=== PATIENT | female | born 1990 | race Hispanic/Latino ===

== ENCOUNTER 2018-09-26 21:55 | Emergency (ER) | payer OTHER ==
[~2018-09-26] VITALS: Ht 160 cm; Wt 61.2 kg
[2018-09-26] MEDS ORDERED: TETRACAINE HCL 0.5% OPTH SOLN 4 ML BTL OP ONE (22:30)
[2018-09-26] MEDS ORDERED: EYE IRRIGATION (OPTH) 120 ML BTL OP ONE (22:30)
[2018-09-26] MEDS ORDERED: TOBRAMYCIN 0.3% OPTH OINT 3.5 GM TUBE ONE (22:42)
[2018-09-26] MEDS ORDERED: TOBRAMYCIN 0.3% OPTH OINT 3.5 GM TUBE OP ONE (22:45)
[2018-09-26 23:27] VITALS: BP 116/84
== END 2018-09-26 23:29 | disposition home or self-care (01) ==
LOC: ER 21:55
DX: S05.02XA Injury of conjunctiva and corneal abrasion without foreign body, left eye, initial encounter (principal); W22.8XXA Striking against or struck by other objects, initial encounter
CPT/HCPCS: 99283

== ENCOUNTER 2018-10-14 15:11 | Emergency (ER) | payer SELFPAY ==
[~2018-10-14] VITALS: Ht 160 cm; Wt 61.2 kg
[2018-10-14] MEDS ORDERED: PENICILLIN G BENZATHINE LA 1.2 MU TBX IM ONE (16:25)
== END 2018-10-14 17:20 | disposition home or self-care (01) ==
LOC: ER 15:11
DX: R50.9 Fever, unspecified (principal); J02.0 Streptococcal pharyngitis; H92.03 Otalgia, bilateral; D64.9 Anemia, unspecified
CPT/HCPCS: 83518; 99282; J0561